=== PATIENT | female | born 1995 | race Caucasian/White ===

== ENCOUNTER 2021-05-03 14:06 | Emergency (ER) | payer MEDICAID ==
[~2021-05-03] VITALS: Ht 170.2 cm; Wt 70.0 kg
[2021-05-03 16:01] VITALS: BP 152/123
== END 2021-05-03 16:52 | disposition home or self-care (01) ==
LOC: EMS 14:10
DX: T16.2XXA Foreign body in left ear, initial encounter (principal); W45.8XXA Other foreign body or object entering through skin, initial encounter; Y93.89 Activity, other specified; Y92.89 Other specified places as the place of occurrence of the external cause; Y99.8 Other external cause status
CPT/HCPCS: 99281; Z7502